=== PATIENT | female | born 1995 | race Caucasian/White ===

== ENCOUNTER 2022-04-20 14:11 | Inpatient (IN) | payer BC ==
[2022-04-20 14:38] VITALS: BMI 46.3
[2022-04-20] MEDS ORDERED: hydrALAZINE 20 MG/ML VIAL SLOW IVP PRN ×4 (14:48→16:34)
[2022-04-20 15:36] LABS: #Eosinphils 0.1 10x3/uL (0.0-0.5); #Monocytes 0.6 10x3/uL (0.0-1.1); #Neutrophils 8.3 10x3/uL (1.5-8.4); %Basophils 0.2 % (0.0-2.0); %Eosinophils 1.1 % (0.0-6.0); %Monocytes 4.9 % (0.0-10.0); %Neutrophils 74.2 % (40.0-75.0); Hemoglobin 13.6 g/dL (12.0-15.5); Mean Corpuscular HGB CONC 33.7 g/dL (32.0-36.0); Mean Corpuscular Hemoglobin 28.1 pg (27.0-33.0); Mean Corpuscular Volume 83.3 fl (81.6-98.3); Platelet Count 279 10x3/uL (150-450); RBC Distribution Width 12.9 % (11.5-14.5); Red Blood Cell (RBC) Count 4.84 10x6/uL (3.90-5.03); White Blood Cell (WBC) Count 11.2 10x3/uL (3.5-10.5)
[2022-04-20 15:52] LABS: Creatinine, Urine 23.82 mg/dL (47-110); Protein, Urine Random Quant Less than 10 mg/dL (1-14)
[2022-04-20 16:01] LABS: ALT (SGPT) 98 U/L (8-55); AST (SGOT) 48 U/L (5-34); Albumin 3.5 g/dL (3.5-5.0); Alkaline Phosphatase 126 U/L (40-110); Anion Gap 16 mmol/L (10-20); BUN (Urea Nitrogen) 7 mg/dL (7.0-18.7); Bilirubin, Total 0.3 mg/dL (0.2-1.2); Calc. Creatinine Clearance 294 mL/min (70-130); Calcium 9.8 mg/dL (7.8-10.44); Carbon Dioxide 21 mmol/L (22-29); Chloride 104 mmol/L (98-107); Estimated GFR 129; Globulin 2.6 g/dL (2.4-3.5); Glucose 87 mg/dL (70-105); Protein, Total 6.1 g/dL (6.0-8.3); Sodium 137 mmol/L (136-145)
[2022-04-20 16:29] VITALS: BP 170/92
[2022-04-20] MEDS ORDERED: Labetalol HCl 100 MG/20 ML VIAL SLOW IVP PRN ×2 (16:34)
[2022-04-20] MEDS ORDERED: Lorazepam 2 MG/ML VIAL SLOW IVP PRN (16:34)
[2022-04-20] MEDS ORDERED: Ondansetron PF 4 MG/2 ML Vial IVP PRN (16:34)
[2022-04-20] MEDS ORDERED: Calcium Gluc 4.6 MEQ/10 ML (100 MG/ML) SLOW IVP PRN (16:34)
[2022-04-20] MEDS ORDERED: Promethazine HCl 25 MG/ML VIAL IM PRN (16:34)
[2022-04-20] MEDS ORDERED: NS w/ Oxytocin 30 units 500 ML IV SCH (16:45)
[2022-04-20] MEDS: Magnesium Sulfate 20 gm/500 ml 20 GM/500 ML BAG IVPB SCH (17:44)
[2022-04-20] MEDS: Betamet Acet/Betamet Na Ph 30 MG/5 ML VIAL IM SCH (17:45)
[2022-04-20 19:54] LABS: SARS-CoV-2 NAA Rapid Test Not Detected (NotDetected)
[2022-04-20 22:29] LABS: Syphilis Antibody Nonreactive (Nonreactive); Syphilis Antibody Index 0.02 S/CO (<1.00 Non-Reactive)
[2022-04-20 23:26] LABS: Hep A IgM AB Non-Reactive (NonReactive); Hep A IgM S/CO 0.16 S/CO (0-0.79); Hep B Surf Ag Non-Reactive S/CO (NonReactive); Hep C IgG Ab Non-Reactive (NonReactive); Hep C Index 0.04 S/CO (0-0.79)
[2022-04-20 23:33] LABS: HBSAg Index 0.25 S/CO (0-0.99)
[2022-04-21] MEDS: Magnesium Sulfate 20 gm/500 ml 20 GM/500 ML BAG IVPB SCH (02:30)
[2022-04-21 04:26] LABS: Hemoglobin 12.9 g/dL (12.0-15.5); Mean Corpuscular HGB CONC 34.2 g/dL (32.0-36.0); Mean Corpuscular Hemoglobin 28.5 pg (27.0-33.0); Mean Corpuscular Volume 83.4 fl (81.6-98.3); Mean Platelet Volume 11.5 fl (7.4-10.4); Platelet Count 255 10x3/uL (150-450); RBC Distribution Width 12.9 % (11.5-14.5); Red Blood Cell (RBC) Count 4.52 10x6/uL (3.90-5.03); White Blood Cell (WBC) Count 12.9 10x3/uL (3.5-10.5)
[2022-04-21 04:42] LABS: ALT (SGPT) 84 U/L (8-55); AST (SGOT) 40 U/L (5-34); Albumin 3.1 g/dL (3.5-5.0); Alkaline Phosphatase 110 U/L (40-110); Anion Gap 14 mmol/L (10-20); BUN (Urea Nitrogen) 5 mg/dL (7.0-18.7); Bilirubin, Total 0.3 mg/dL (0.2-1.2); Calc. Creatinine Clearance 289 mL/min (70-130); Calcium 8.5 mg/dL (7.8-10.44); Carbon Dioxide 17 mmol/L (22-29); Chloride 105 mmol/L (98-107); Estimated GFR 128; Globulin 3.1 g/dL (2.4-3.5); Glucose 142 mg/dL (70-105); Potassium 4.1 mmol/L (3.5-5.1); Protein, Total 6.2 g/dL (6.0-8.3); Sodium 132 mmol/L (136-145)
[2022-04-21] MEDS: Betamet Acet/Betamet Na Ph 30 MG/5 ML VIAL IM SCH (18:46)
[2022-04-21 21:34] LABS: Hemoglobin 12.3 g/dL (12.0-15.5); Mean Corpuscular HGB CONC 33.6 g/dL (32.0-36.0); Mean Corpuscular Hemoglobin 28.3 pg (27.0-33.0); Mean Corpuscular Volume 84.1 fl (81.6-98.3); Mean Platelet Volume 11.5 fl (7.4-10.4); Platelet Count 264 10x3/uL (150-450); RBC Distribution Width 13.1 % (11.5-14.5); Red Blood Cell (RBC) Count 4.35 10x6/uL (3.90-5.03); White Blood Cell (WBC) Count 12.2 10x3/uL (3.5-10.5)
[2022-04-21 21:43] LABS: Group B Streptococcus by PCR DETECTED (NotDetected)
[2022-04-22 04:13] LABS: Hemoglobin 12.7 g/dL (12.0-15.5); Mean Corpuscular HGB CONC 32.9 g/dL (32.0-36.0); Mean Corpuscular Volume 85.2 fl (81.6-98.3); Platelet Count 258 10x3/uL (150-450); Red Blood Cell (RBC) Count 4.53 10x6/uL (3.90-5.03); White Blood Cell (WBC) Count 12.5 10x3/uL (3.5-10.5)
[2022-04-22 04:26] LABS: ALT (SGPT) 84 U/L (8-55); AST (SGOT) 36 U/L (5-34); Albumin 3.2 g/dL (3.5-5.0); Alkaline Phosphatase 106 U/L (40-110); Anion Gap 13 mmol/L (10-20); BUN (Urea Nitrogen) 8 mg/dL (7.0-18.7); Bilirubin, Total 0.2 mg/dL (0.2-1.2); Calc. Creatinine Clearance 275 mL/min (70-130); Calcium 9.3 mg/dL (7.8-10.44); Carbon Dioxide 21 mmol/L (22-29); Chloride 107 mmol/L (98-107); Estimated GFR 127; Globulin 3.1 g/dL (2.4-3.5); Glucose 146 mg/dL (70-105); Protein, Total 6.3 g/dL (6.0-8.3); Sodium 137 mmol/L (136-145)
== END 2022-04-22 10:20 | disposition home or self-care (01) | DRG 833 ==
LOC: CSHLD/OP 14:11 → CSHLD 18:30
PROVIDERS: ADMIT Obstetrics & Gynecology; ATTEND Obstetrics & Gynecology
DX: O13.3 Gestational [pregnancy-induced] hypertension without significant proteinuria, third trimester (principal); Z20.822 Contact with and (suspected) exposure to COVID-19; Z3A.30 30 weeks gestation of pregnancy; E66.9 Obesity, unspecified; O99.213 Obesity complicating pregnancy, third trimester; K76.0 Fatty (change of) liver, not elsewhere classified; O99.613 Diseases of the digestive system complicating pregnancy, third trimester
CPT/HCPCS: 36415; 76815; 76819; 80053; 82570; 84156; 85025; 85027; 86709; 86780; 86803; 86850; 86900; 86901; 87340; 87653; 99285; J0360; J0702; J3475; U0002

== ENCOUNTER 2022-04-24 20:51 | Inpatient (IN) | payer BC ==
[~2022-04-24 20:51] MED LIST: Bupivacaine/Epinephrine 0.25% 30 ML VIAL ONE
[2022-04-24] MEDS ORDERED: hydrALAZINE 20 MG/ML VIAL SLOW IVP PRN ×2 (20:53→21:53)
[2022-04-24 21:45] VITALS: BMI 46.3
[2022-04-24] MEDS ORDERED: Promethazine HCl 25 MG/ML VIAL IM PRN (21:53)
[2022-04-24] MEDS ORDERED: Ondansetron PF 4 MG/2 ML Vial IVP PRN (21:53)
[2022-04-24] MEDS ORDERED: Lidocaine 1% (PF) 30 ML VIAL SC PRN (21:53)
[2022-04-24 21:55] LABS: Fetal Membranes Rupture RUPTURE DETECTED (No Rupture)
[2022-04-24] MEDS ORDERED: NS w/ Oxytocin 30 units 500 ML IV SCH ×2 (22:00→22:15)
[2022-04-24] MEDS ORDERED: Acetaminophen 500 MG TAB PO PRN (22:01)
[2022-04-24] MEDS ORDERED: Ibuprofen 800 MG TAB PO PRN (22:01)
[2022-04-24] MEDS ORDERED: Butorphanol Tartrate 1 MG/ML VIAL SLOW IVP PRN (22:01)
[2022-04-24] MEDS ORDERED: Methylergonovine 0.2 MG/ML VIAL IM PRN (22:01)
[2022-04-24] MEDS ORDERED: Carboprost 250 MCG/ML AMP IM PRN (22:01)
[2022-04-24] MEDS ORDERED: Misoprostol 200 MCG TAB PR PRN (22:01)
[2022-04-24] MEDS ORDERED: Lactated Ringer's 1,000 ML IV SCH (22:15)
[2022-04-24] MEDS ORDERED: Misoprostol 100 MCG TAB VAG SCH (22:15)
[2022-04-24] MEDS: CEFAZOLIN 1 GM in Sodium Chloride 0.9% 100 ML IVPB SCH (22:59)
[2022-04-24 23:34] LABS: Hemoglobin 13.8 g/dL (12.0-15.5); Mean Corpuscular HGB CONC 33.3 g/dL (32.0-36.0); Mean Corpuscular Hemoglobin 28.1 pg (27.0-33.0); Mean Corpuscular Volume 84.3 fl (81.6-98.3); Mean Platelet Volume 11.8 fl (7.4-10.4); Platelet Count 284 10x3/uL (150-450); Red Blood Cell (RBC) Count 4.91 10x6/uL (3.90-5.03)
[2022-04-25 00:07] LABS: HBSAg Index 0.07 S/CO (0-0.99); Hep B Surf Ag Non-Reactive S/CO (NonReactive); Syphilis Antibody Nonreactive (Nonreactive); Syphilis Antibody Index 0.03 S/CO (<1.00 Non-Reactive)
[2022-04-25] MEDS: CEFAZOLIN 1 GM in Sodium Chloride 0.9% 100 ML IVPB SCH ×2 (07:20→15:22)
[2022-04-25] MEDS ORDERED: NIFEdipine 10 MG CAP PO SCH (11:15)
[2022-04-25] MEDS ORDERED: Magnesium Sulfate 20 gm/500 ml 20 GM/500 ML BAG ONE (12:18)
[2022-04-25] MEDS ORDERED: Fentanyl 2 mcg/Bup 0.1% Cadd 100 ML ONE (12:19)
[2022-04-25] MEDS ORDERED: Fentanyl 100 MCG/2 ML VIAL ONE (18:35)
[2022-04-25] MEDS ORDERED: Ondansetron PF 4 MG/2 ML Vial IVP PRN (18:39)
[2022-04-25] MEDS ORDERED: Moisturizing Cream (Eucerin) 113 GM JAR TOP PRN (18:39)
[2022-04-25] MEDS ORDERED: Naloxone HCl 0.4 mg/ml Vial IVP PRN ×2 (18:39)
[2022-04-25] MEDS ORDERED: ePHEDrine Sulfate 50 MG/10 ML VIAL SLOW IVP PRN (18:39)
[2022-04-25] MEDS ORDERED: Lactated Ringer's 500 ML IV PRN (18:39)
[2022-04-25] MEDS ORDERED: Promethazine HCl 25 MG/ML VIAL IM PRN (18:39)
[2022-04-25] MEDS ORDERED: diphenhydrAMINE 50 MG/ML VIAL IVP PRN (18:39)
[2022-04-25] MEDS ORDERED: Acetaminophen 325 MG TAB PO PRN (18:39)
[2022-04-25] MEDS ORDERED: Fentanyl 2 mcg/Bupivacaine 0.1% Cassette 100 ML EPIDURAL SCH (18:45)
[2022-04-25] MEDS ORDERED: Communication Order-Pharmacy FS SCH (18:45)
[2022-04-25] MEDS ORDERED: Magnesium Sulfate 20 gm/500 ml 20 GM/500 ML BAG IVPB SCH (18:45)
[2022-04-25] MEDS ORDERED: Acetaminophen/Codeine 30-300mg Tablet PO PRN (21:37)
[2022-04-25] MEDS ORDERED: diphenhydrAMINE 25 MG CAP PO PRN (21:37)
[2022-04-25] MEDS ORDERED: Milk Of Magnesia 30 ML UDCUP PO PRN (21:37)
[2022-04-25] MEDS ORDERED: Benzocaine-Menthol 82.5 ML CAN TOP PRN (21:37)
[2022-04-25] MEDS ORDERED: Bisacodyl 10 MG SUPP PR PRN (21:37)
[2022-04-25] MEDS ORDERED: Lanolin Ointment 7 GM TUBE TOP PRN (21:37)
[2022-04-25] MEDS ORDERED: hydrALAZINE 20 MG/ML VIAL SLOW IVP PRN (21:37)
[2022-04-25] MEDS ORDERED: Preparation H Ointment 28 GM TUBE PR PRN (21:37)
[2022-04-25] MEDS ORDERED: Boostrix 0.5 ML (Tdap) VIAL (>/=7 yrs of age) IM ONE (21:37)
[2022-04-26 06:05] LABS: Hemoglobin 11.4 g/dL (12.0-15.5)
[2022-04-26] MEDS: Prenatal Vitamin 1 TAB PO SCH (08:23)
[2022-04-26] MEDS: Docusate 100 MG CAP PO SCH ×2 (08:23→21:27)
[2022-04-26] MEDS: Ibuprofen 800 MG TAB PO PRN ×2 (08:24→17:33)
[2022-04-26] MEDS: Ferrous Sulfate 325 MG TAB PO SCH (09:15)
[2022-04-27] MEDS: Ibuprofen 800 MG TAB PO PRN (03:33)
[2022-04-27 07:50] VITALS: BP 104/54; TEMP 97.9
[2022-04-27] MEDS: Docusate 100 MG CAP PO SCH (11:47)
[2022-04-27] MEDS: Prenatal Vitamin 1 TAB PO SCH (11:47)
== END 2022-04-27 13:03 | disposition home or self-care (01) | DRG 807 ==
LOC: CSHLD/OP 20:51 → CSHLD 22:43 → CSHPP 04-25 22:58
PROVIDERS: ADMIT Obstetrics & Gynecology; ATTEND Obstetrics & Gynecology
PROC: 10E0XZZ Delivery of Products of Conception, External Approach (ICD-10-PCS; principal; 2022-04-25)
PROC: 0HQ9XZZ Repair Perineum Skin, External Approach (ICD-10-PCS; 2022-04-25)
DX: O42.013 Preterm premature rupture of membranes, onset of labor within 24 hours of rupture, third trimester (principal); Z37.0 Single live birth; Z3A.31 31 weeks gestation of pregnancy; O13.4 Gestational [pregnancy-induced] hypertension without significant proteinuria, complicating childbirth; E66.9 Obesity, unspecified; O99.214 Obesity complicating childbirth; Z79.82 Long term (current) use of aspirin; O99.824 Streptococcus B carrier state complicating childbirth; O70.0 First degree perineal laceration during delivery
CPT/HCPCS: 36415; 51702; 76815; 84112; 85014; 85018; 85027; 86780; 86850; 86900; 86901; 87070; 87205; 87340; 88307; 99285; J0690; J3490

== ENCOUNTER 2024-02-03 14:28 | Day surgery (SDC) | payer BC, MEDICAID ==
[2024-02-03 14:37] VITALS: BMI 50.1
[2024-02-03 16:11] LABS: #Basophils 0.02 10x3/uL (0.0-0.2); #Eosinophils 0.06 10x3/uL (0.0-0.5); #Monocytes 0.56 10x3/uL (0.0-1.1); #Neutrophils 8.25 10x3/uL (1.5-8.4); %Basophils 0.2 % (0.0-2.0); %Eosinophils 0.5 % (0.0-6.0); %Lymphocytes 19.4 % (18.0-47.0); Hematocrit 40.8 % (34.9-44.5); Hemoglobin 13.4 g/dL (12.0-15.5); Mean Corpuscular HGB CONC 32.8 g/dL (32.0-36.0); Mean Corpuscular Hemoglobin 27.5 pg (27.0-33.0); Mean Corpuscular Volume 83.8 fL (81.6-98.3); Mean Platelet Volume 11.4 fL (7.4-10.4); Platelet Count 245 10x3/uL (150-450); Red Blood Cell (RBC) Count 4.87 10x6/uL (3.90-5.03); White Blood Cell (WBC) Count 11.2 10x3/uL (3.5-10.5)
[2024-02-03 16:15] LABS: Creatinine, Urine Less than 20.00 mg/dL (47-110); Protein, Urine Random Quant Less than 10 mg/dL (1-14)
[2024-02-03 16:48] LABS: ALT (SGPT) 71 U/L (8-55); AST (SGOT) 37 U/L (5-34); Albumin 2.9 g/dL (3.5-5.0); Alkaline Phosphatase 152 U/L (40-110); Anion Gap 14 mmol/L (10-20); BUN (Urea Nitrogen) 8 mg/dL (7.0-18.7); Bilirubin, Total 0.4 mg/dL (0.2-1.2); Calc. Creatinine Clearance 278 mL/min (70-130); Calcium 10.1 mg/dL (7.8-10.44); Carbon Dioxide 22 mmol/L (22-29); Chloride 105 mmol/L (98-107); Estimated GFR 124; Globulin 3.7 g/dL (2.4-3.5); Glucose 82 mg/dL (70-105); Protein, Total 6.6 g/dL (6.0-8.3); Sodium 137 mmol/L (136-145)
== END 2024-02-03 17:27 | disposition home health service (06) ==
LOC: CSHLD/OP 14:28
PROVIDERS: ATTEND Family Medicine
DX: O99.891 Other specified diseases and conditions complicating pregnancy (principal); R03.0 Elevated blood-pressure reading, without diagnosis of hypertension; R74.01 Elevation of levels of liver transaminase levels; O99.213 Obesity complicating pregnancy, third trimester; E66.01 Morbid (severe) obesity due to excess calories; Z79.85 Long-term (current) use of injectable non-insulin antidiabetic drugs; Z79.899 Other long term (current) drug therapy; Z98.890 Other specified postprocedural states; Z3A.35 35 weeks gestation of pregnancy
CPT/HCPCS: 36415; 80053; 82570; 84156; 85025

== ENCOUNTER 2024-02-28 09:42 | Inpatient (IN) | payer OTHER ==
[~2024-02-28 09:42] MED LIST changes: +Bupivacaine 0.25% HCL 30 ML VIAL ONE; +Bupivacaine HCl 0.5%/Epinephrine 1:200,000/PF 30 ml Vial ONE; +Bupivacaine PF 0.5% 30 ML VIAL ONE; -Bupivacaine/Epinephrine 0.25% 30 ML VIAL ONE
[2024-02-28] MEDS ORDERED: Promethazine HCl 25 MG/ML VIAL IM PRN (10:59)
[2024-02-28] MEDS ORDERED: Ibuprofen 800 MG TAB PO PRN (10:59)
[2024-02-28] MEDS ORDERED: hydrALAZINE 20 MG/ML VIAL SLOW IVP PRN (10:59)
[2024-02-28] MEDS ORDERED: Ondansetron PF 4 MG/2 ML Vial IVP PRN (10:59)
[2024-02-28] MEDS ORDERED: Lidocaine 1% (PF) 30 ML VIAL SC PRN (10:59)
[2024-02-28 11:21] LABS: ALT (SGPT) 61 U/L (8-55); AST (SGOT) 36 U/L (5-34); Albumin 2.6 g/dL (3.5-5.0); Alkaline Phosphatase 186 U/L (40-110); Anion Gap 12 mmol/L (10-20); BUN (Urea Nitrogen) 7 mg/dL (7.0-18.7); Bilirubin, Total 0.3 mg/dL (0.2-1.2); Calc. Creatinine Clearance 0 mL/min (70-130); Calcium 9.5 mg/dL (7.8-10.44); Carbon Dioxide 22 mmol/L (22-29); Chloride 107 mmol/L (98-107); Estimated GFR 123; Globulin 3.8 g/dL (2.4-3.5); Glucose 97 mg/dL (70-105); Potassium 3.8 mmol/L (3.5-5.1); Protein, Total 6.4 g/dL (6.0-8.3); Sodium 137 mmol/L (136-145)
[2024-02-28 11:42] LABS: Hematocrit 41.5 % (34.9-44.5); Hemoglobin 13.8 g/dL (12.0-15.5); Mean Corpuscular HGB CONC 33.3 g/dL (32.0-36.0); Mean Corpuscular Hemoglobin 27.9 pg (27.0-33.0); Mean Platelet Volume 12.1 fL (7.4-10.4); Platelet Count 217 10x3/uL (150-450); RBC Distribution Width 14.4 % (11.5-14.5); Red Blood Cell (RBC) Count 4.94 10x6/uL (3.90-5.03); White Blood Cell (WBC) Count 10.15 10x3/uL (3.5-10.5)
[2024-02-28 11:51] LABS: Syphilis Antibody Nonreactive (Nonreactive); Syphilis Antibody Index 0.03 S/CO (<1.00 Non-Reactive)
[2024-02-28 11:53] LABS: HBsAg Index 0.23 S/CO (0-0.99); Hep B Surf Ag - L&D Non-Reactive S/CO (NonReactive)
[2024-02-28] MEDS: Oxytocin 30 units/NS 500 ML 500 ML IV SCH (13:56)
[2024-02-29] MEDS: fentaNYL/Ropivacaine Epidural 100 ML ONE (00:43)
[2024-02-29] MEDS ORDERED: Moisturizing Cream (Eucerin) 113 GM JAR TOP PRN (00:49)
[2024-02-29] MEDS ORDERED: ePHEDrine Sulfate 50 MG/10 ML VIAL SLOW IVP PRN (00:49)
[2024-02-29] MEDS ORDERED: Lactated Ringer's 500 ML IV PRN (00:49)
[2024-02-29] MEDS ORDERED: Acetaminophen 325 MG TAB PO PRN (00:49)
[2024-02-29] MEDS ORDERED: diphenhydrAMINE 50 MG/ML VIAL IVP PRN (00:49)
[2024-02-29] MEDS ORDERED: Promethazine HCl 25 MG/ML VIAL IM PRN (00:49)
[2024-02-29] MEDS ORDERED: Ondansetron PF 4 MG/2 ML Vial IVP PRN (00:49)
[2024-02-29] MEDS ORDERED: Naloxone HCl 0.4 mg/ml Vial IVP PRN ×2 (00:49)
[2024-02-29] MEDS ORDERED: Communication Order-Pharmacy FS SCH (01:00)
[2024-02-29] MEDS ORDERED: fentaNYL 2 mcg/Ropivacaine 0.2% Epidural 100 ML CADD EPIDURAL SCH (01:00)
[2024-02-29] MEDS ORDERED: Bisacodyl 10 MG SUPP PR PRN (03:56)
[2024-02-29] MEDS ORDERED: hydrALAZINE 20 MG/ML VIAL SLOW IVP PRN (03:56)
[2024-02-29] MEDS ORDERED: Milk Of Magnesia 30 ML UDCUP PO PRN (03:56)
[2024-02-29] MEDS: Misoprostol 200 MCG TAB ONE (04:07)
[2024-02-29] MEDS: Oxytocin 30 units/NS 500 ML 500 ML IV SCH (04:07)
[2024-02-29] MEDS: Boostrix 0.5 ML (Tdap) VIAL (>/=7 yrs of age) IM ONE (04:08)
[2024-02-29] MEDS: Ibuprofen 800 MG TAB PO SCH (06:12)
[2024-02-29] MEDS: Docusate 100 MG CAP PO SCH (09:17)
[2024-02-29] MEDS: Ferrous Sulfate 325 MG TAB PO SCH (16:48)
[2024-03-01 11:39] VITALS: BP 120/68; TEMP 98.1
== END 2024-03-01 13:35 | disposition home or self-care (01) | DRG 807 ==
LOC: CSHLD/OP 09:42 → EEVIPCON 09:42 → CSHLD 12:29 → CSHPP 02-29 06:00
PROVIDERS: ADMIT Family Medicine; ATTEND Family Medicine
PROC: 10E0XZZ Delivery of Products of Conception, External Approach (ICD-10-PCS; principal; 2024-02-29)
PROC: 3E0S3BZ Introduction of Anesthetic Agent into Epidural Space, Percutaneous Approach (ICD-10-PCS; 2024-02-29)
PROC: 0HQ9XZZ Repair Perineum Skin, External Approach (ICD-10-PCS; 2024-02-29)
DX: O13.4 Gestational [pregnancy-induced] hypertension without significant proteinuria, complicating childbirth (principal); Z37.0 Single live birth; O70.0 First degree perineal laceration during delivery; O99.214 Obesity complicating childbirth; E66.813 Obesity, class 3; Z3A.38 38 weeks gestation of pregnancy
CPT/HCPCS: 36415; 51702; 80053; 82570; 84156; 85027; 86780; 86850; 86900; 86901; 87340; 99285; J0665; J2590